=== PATIENT | male | born 1930 | race Caucasian/White ===

== ENCOUNTER 2021-10-19 20:40 | Emergency (ER) | payer MEDICARE, OTHER ==
[~2021-10-19 20:40] MED LIST: AFRIN15 M1; ASPIRIN EC81 MG PO; BUDESONIDE EC3 MG; COMPLETE MULTI1 EAC2 PO; FLOMAX0.4 MG PO; LASIX40 MG PO; NITROQUIK SL0.4 MG SL; TYLENOL #31 EACH PO; ZOVIRAX800 MG PO
[2021-10-19 21:26] LABS: BASOPHIL 0.5 % (0-2); EOSINOPHIL 3.4 % (0-7); HCT 41.6 % (42.0-52.0); HGB 13.8 g/dl (13.2-18.0); LYMPHOCYTE 8.8 % (15-48); MCH 33.3 pg (25.0-31.0); MCHC 33.2 g/dL (32.0-36.0); MCV 100.2 fL (78.0-100.0); MPV 10.7 fL (6.0-9.5); NEUTROPHIL 77.9 % (41-80); NRBC 0; PLT 144 K/uL (150-400); RBC 4.15 M/uL (4.70-6.00); RDW 12.6 % (11.5-14.0); WBC 9.9 K/uL (4.0-10.5)
[2021-10-19 21:45] LABS: ALBUMIN 3.3 g/dL (3.4-5.0); BILIRUBIN - TOTAL 0.6 mg/dL (0.2-1.0); BUN/CREAT RATIO (CALC) 20.2 RATIO; CREATININE 2.18 mg/dL (0.67-1.17); GLOBULIN (CALCULATION) 3.5 g/dL; MAGNESIUM 2.4 mg/dL (1.8-2.4); TOTAL PROTEIN 6.8 g/dL (6.4-8.2)
[2021-10-19 21:49] LABS: POTASSIUM 5.1 mmol/L (3.5-5.1)
== END 2021-10-19 22:11 | disposition home or self-care (01) ==
LOC: FER 20:40
PROVIDERS: Internal Medicine
DX: R19.7 Diarrhea, unspecified (principal); I13.0 Hypertensive heart and chronic kidney disease with heart failure and stage 1 through stage 4 chronic kidney disease, or unspecified chronic kidney disease; N18.4 Chronic kidney disease, stage 4 (severe); I50.9 Heart failure, unspecified; Z87.891 Personal history of nicotine dependence; Z79.899 Other long term (current) drug therapy
CPT/HCPCS: 36415; 80053; 83735; 85025